=== PATIENT | male | born 1945 | race Caucasian/White ===

== ENCOUNTER 2017-11-25 15:59 | Emergency (ER) | payer OTHER ==
[~2017-11-25] VITALS: Ht 180.3 cm; Wt 112.6 kg
[~2017-11-25 15:59] MED LIST: CIPRO500 MG PO; FLAGYL500 MG PO; NORCO 5/3251 TABLET PO
[2017-11-25 20:28] VITALS: BP 117/69
== END 2017-11-25 20:29 | disposition home or self-care (01) ==
LOC: EXP 15:59 → EME 15:59 → EXP 20:29
DX: R22.43 Localized swelling, mass and lump, lower limb, bilateral (principal); Z96.652 Presence of left artificial knee joint; N40.0 Benign prostatic hyperplasia without lower urinary tract symptoms; Z87.891 Personal history of nicotine dependence; K22.70 Barrett's esophagus without dysplasia
CPT/HCPCS: 93971; 99281; 99283